=== PATIENT | female | born 1980 | race Caucasian/White ===

== ENCOUNTER 2019-07-07 13:11 | Emergency (ER) | payer OTHER ==
[~2019-07-07] VITALS: Ht 154.9 cm; Wt 94.3 kg
[2019-07-07] MEDS ORDERED: SYNTHROID50 MCG (16:21)
[2019-07-07] MEDS ORDERED: VOLTAREN-XR100 MG PO (18:26)
[2019-07-07] MEDS ORDERED: SKELAXIN800 MG PO (18:26)
== END 2019-07-07 18:50 | disposition home or self-care (01) ==
LOC: ER 13:11
DX: S33.5XXA Sprain of ligaments of lumbar spine, initial encounter (principal); S13.4XXA Sprain of ligaments of cervical spine, initial encounter; M25.512 Pain in left shoulder; R07.89 Other chest pain; V49.88XA Car occupant (driver) (passenger) injured in other specified transport accidents, initial encounter; Y93.89 Activity, other specified; Y92.413 State road as the place of occurrence of the external cause; Y99.8 Other external cause status

== ENCOUNTER 2021-05-22 08:43 | Outpatient (CLI) | payer OTHER ==
[~2021-05-22 08:43] MED LIST: SKELAXIN800 MG PO; SYNTHROID50 MCG; VOLTAREN-XR100 MG PO
== END 2021-05-22 08:53 | disposition home or self-care (01) ==
LOC: LAB 08:43
DX: D50.0 Iron deficiency anemia secondary to blood loss (chronic) (principal); E03.8 Other specified hypothyroidism; I10 Essential (primary) hypertension; E78.89 Other lipoprotein metabolism disorders; N30.00 Acute cystitis without hematuria; N80.3 Endometriosis of pelvic peritoneum; E55.9 Vitamin D deficiency, unspecified; N83.209 Unspecified ovarian cyst, unspecified side; E05.00 Thyrotoxicosis with diffuse goiter without thyrotoxic crisis or storm

== ENCOUNTER 2021-06-07 09:41 | Outpatient (CLI) | payer OTHER | END 2021-06-07 09:46 | disposition home or self-care (01) | LOC: SONOGRAMA 09:41 | DX: R10.9 Unspecified abdominal pain (principal); R10.30 Lower abdominal pain, unspecified; N23 Unspecified renal colic; R92.2 Inconclusive mammogram; N64.51 Induration of breast; Z12.31 Encounter for screening mammogram for malignant neoplasm of breast; N94.6 Dysmenorrhea, unspecified; N83.00 Follicular cyst of ovary, unspecified side; N92.0 Excessive and frequent menstruation with regular cycle ==

== ENCOUNTER 2021-06-13 07:47 | Outpatient (CLI) | payer OTHER | END 2021-06-13 07:53 | disposition home or self-care (01) | LOC: MAMO-SONO 07:47 | DX: Z12.31 Encounter for screening mammogram for malignant neoplasm of breast (principal); N64.51 Induration of breast ==

== ENCOUNTER 2021-07-16 16:05 | Emergency (ER) | payer OTHER ==
[~2021-07-16] VITALS: Ht 154.9 cm; Wt 89.8 kg
[2021-07-16] MEDS ORDERED: AYGESTIN5 MG PO (16:16)
== END 2021-07-16 20:19 | disposition home or self-care (01) ==
LOC: ER 16:05
DX: N93.8 Other specified abnormal uterine and vaginal bleeding (principal); Z88.0 Allergy status to penicillin; Z88.8 Allergy status to other drugs, medicaments and biological substances; Z91.018 Allergy to other foods

== ENCOUNTER → 2021-07-29 12:17 | Outpatient (CLI) | payer OTHER ==
[~2021-07-29 12:17] MED LIST changes: +AYGESTIN5 MG PO
== END | disposition home or self-care (01) ==
LOC: LAB 12:17
PROVIDERS: ATTEND Obstetrics & Gynecology
DX: E03.9 Hypothyroidism, unspecified (principal)

== ENCOUNTER 2021-09-18 10:39 | Outpatient (CLI) | payer OTHER | END 2021-09-18 10:46 | disposition home or self-care (01) | LOC: LAB 10:39 | DX: B09 Unspecified viral infection characterized by skin and mucous membrane lesions (principal); J45.31 Mild persistent asthma with (acute) exacerbation; R07.82 Intercostal pain; N39.0 Urinary tract infection, site not specified; R80.9 Proteinuria, unspecified; R19.5 Other fecal abnormalities; E78.00 Pure hypercholesterolemia, unspecified; M32.9 Systemic lupus erythematosus, unspecified; M10.00 Idiopathic gout, unspecified site; I11.9 Hypertensive heart disease without heart failure; R73.02 Impaired glucose tolerance (oral); E55.9 Vitamin D deficiency, unspecified; M06.9 Rheumatoid arthritis, unspecified; A52.9 Late syphilis, unspecified ==

== ENCOUNTER 2021-11-01 08:54 | Outpatient (CLI) | payer OTHER | END 2021-11-01 08:55 | disposition home or self-care (01) | LOC: LAB 08:54 | PROVIDERS: ATTEND Obstetrics & Gynecology | DX: N92.1 Excessive and frequent menstruation with irregular cycle (principal); R10.0 Acute abdomen ==

== ENCOUNTER 2021-11-26 13:56 | Outpatient (CLI) | payer OTHER | END 2021-11-26 13:57 | disposition home or self-care (01) | LOC: LAB 13:56 | PROVIDERS: ATTEND Radiology Diagnostic Radiology | DX: N85.02 Endometrial intraepithelial neoplasia [EIN] (principal) ==

== ENCOUNTER 2021-12-03 09:03 | Outpatient (CLI) | payer OTHER | END 2021-12-03 09:24 | disposition home or self-care (01) | LOC: MRI 09:03 | PROVIDERS: ATTEND Obstetrics & Gynecology | DX: N85.02 Endometrial intraepithelial neoplasia [EIN] (principal) | CPT/HCPCS: 72197 ==

== ENCOUNTER 2022-01-02 08:49 | Outpatient (CLI) | payer OTHER | END 2022-01-02 08:50 | disposition home or self-care (01) | LOC: LAB 08:49 | DX: Z01.812 Encounter for preprocedural laboratory examination (principal); D68.8 Other specified coagulation defects; Z01.810 Encounter for preprocedural cardiovascular examination ==

== ENCOUNTER 2022-10-15 09:34 | Outpatient (CLI) | payer OTHER | END 2022-10-15 09:42 | disposition home or self-care (01) | LOC: LAB 09:34 | PROVIDERS: ATTEND Dermatology | DX: R68.89 Other general symptoms and signs (principal); R82.90 Unspecified abnormal findings in urine; R79.89 Other specified abnormal findings of blood chemistry; B17.9 Acute viral hepatitis, unspecified; Z11.4 Encounter for screening for human immunodeficiency virus [HIV]; R91.8 Other nonspecific abnormal finding of lung field ==

== ENCOUNTER 2022-10-15 10:28 | Outpatient (CLI) | payer OTHER | END 2022-10-15 11:00 | disposition home or self-care (01) | LOC: MAMO-SONO 10:28 | PROVIDERS: ATTEND Obstetrics & Gynecology | DX: Z12.31 Encounter for screening mammogram for malignant neoplasm of breast (principal); N60.21 Fibroadenosis of right breast; N60.22 Fibroadenosis of left breast ==

== ENCOUNTER 2022-11-05 10:48 | Outpatient (CLI) | payer OTHER | END 2022-11-05 10:50 | disposition home or self-care (01) | LOC: LAB 10:48 | DX: R68.89 Other general symptoms and signs (principal) ==

== ENCOUNTER 2022-12-30 15:00 | Emergency (ER) | payer OTHER ==
[~2022-12-30] VITALS: Ht 154.9 cm; Wt 89.8 kg
[2022-12-30] MEDS ORDERED: DITROPAN XL5 MG (15:24)
[2022-12-30] MEDS ORDERED: SKYRIZI150 MG/1 M SQ (15:24)
[2022-12-30] MEDS ORDERED: GRALISE600 MG (15:24)
== END 2022-12-30 23:16 | disposition home or self-care (01) ==
LOC: ER 15:00
PROVIDERS: General Practice
DX: J06.9 Acute upper respiratory infection, unspecified (principal); Z20.822 Contact with and (suspected) exposure to COVID-19; Z88.0 Allergy status to penicillin; Z88.8 Allergy status to other drugs, medicaments and biological substances; Z91.018 Allergy to other foods

== ENCOUNTER → 2023-01-14 07:54 | Outpatient (CLI) | payer OTHER ==
[~2023-01-14 07:54] MED LIST changes: +DITROPAN XL5 MG; +GRALISE600 MG; +SKYRIZI150 MG/1 M SQ
== END | disposition home or self-care (01) ==
LOC: LAB 07:54
DX: I40.0 Infective myocarditis (principal); Z79.899 Other long term (current) drug therapy; Z88.0 Allergy status to penicillin; Z91.018 Allergy to other foods; Z91.041 Radiographic dye allergy status

== ENCOUNTER → 2023-01-16 | Outpatient (CLI) | payer OTHER | END | disposition home or self-care (01) | LOC: SONOGRAMA 13:10 | PROVIDERS: ATTEND Specialist | DX: R22.2 Localized swelling, mass and lump, trunk (principal) ==

== ENCOUNTER → 2023-03-11 10:47 | Outpatient (CLI) | payer OTHER ==
[2023-03-11 11:31] LABS: URINE APPEARANCE Clear; URINE BILIRRUBIN Negative (NEGATIVE); URINE BLOOD Negative; URINE COLOR Yellow; URINE GLUCOSE Negative (NEGATIVE); URINE LEUKOCYTE Negative; URINE NITRATE Negative; URINE PROTEIN Negative (NEGATIVE); URINE UROBILINOGEN 0.2 E.U./dl
[2023-03-11 11:35] LABS: URINE BACTERIA 110.8 uL (0.0-1933); URINE EPITHELIAL CELLS 10.8 uL (0.0-38.8); URINE RBC 6.4 uL (0.0-20.8); URINE WBC 2.7 uL (0.0-23.2)
[2023-03-11 11:39] LABS: HEMATOCRIT 33.1 % (36.0-45.00); HEMOGLOBIN 11.4 g/dL (12.0-15.00); MEAN CELL VOLUME 77.6 fL (80.00-100.00); MEAN CORPUSCULAR HEMOGLOBIN 26.6 pg (27.00-32.0); MEAN CORPUSCULAR HGB CONC 34.3 g/dl (32.0-36.0); PLATELET COUNT 300 K/uL (150-450); RED BLOOD COUNT 4.27 M/uL (4.00-6.00)
[2023-03-11 12:30] LABS: ALBUMIN 3.6 gm/dL (3.4-5.0); BILIRUBIN TOTAL 0.34 mg/dL (0.3-1.2); CALCIUM 8.8 mg/dL (8.5-10.1); CREATININE SERUM 0.62 mg/dL (0.55-1.02); GFR 105.06; GLOBULINA 3.6 G/DL (2.4-3.5); POTASSIUM 4.58 mEq/L (3.5-5.1); TOTAL PROTEIN 7.2 gm/dL (6.4-8.2)
== END | disposition home or self-care (01) ==
LOC: LAB 10:47
PROVIDERS: ATTEND Dermatology
DX: Z79.899 Other long term (current) drug therapy (principal); Z88.0 Allergy status to penicillin; Z91.018 Allergy to other foods

== ENCOUNTER → 2023-03-20 09:08 | Outpatient (CLI) | payer OTHER ==
[2023-03-20 10:44] LABS: CREATININE SERUM 0.65 mg/dL (0.55-1.02)
== END | disposition home or self-care (01) ==
LOC: LAB 09:08
PROVIDERS: ATTEND Urology
DX: N30.90 Cystitis, unspecified without hematuria (principal); Z88.0 Allergy status to penicillin; Z91.018 Allergy to other foods; Z91.041 Radiographic dye allergy status

== ENCOUNTER → 2023-03-24 | Outpatient (CLI) | payer OTHER | END | disposition home or self-care (01) | LOC: TOM 08:42 → MRI 08:42 | PROVIDERS: ATTEND Obstetrics & Gynecology | DX: N30.90 Cystitis, unspecified without hematuria (principal); Z88.0 Allergy status to penicillin; Z91.018 Allergy to other foods; Z91.041 Radiographic dye allergy status | CPT/HCPCS: 72196 ==

== ENCOUNTER 2023-04-11 10:03 | Emergency (ER) | payer OTHER ==
[~2023-04-11] VITALS: Ht 162.6 cm; Wt 90.7 kg
== END 2023-04-11 19:10 | disposition home or self-care (01) ==
LOC: ER 10:03
DX: M62.838 Other muscle spasm (principal); Z88.0 Allergy status to penicillin; Z88.8 Allergy status to other drugs, medicaments and biological substances; Z91.018 Allergy to other foods; E03.9 Hypothyroidism, unspecified

== ENCOUNTER → 2023-04-24 08:50 | Outpatient (CLI) | payer OTHER ==
[2023-04-24 09:25] LABS: HEMATOCRIT 35.2 % (36.0-45.00); HEMOGLOBIN 11.7 g/dL (12.0-15.00); MEAN CELL VOLUME 78.2 fL (80.00-100.00); MEAN CORPUSCULAR HGB CONC 33.2 g/dl (32.0-36.0); PLATELET COUNT 356 K/uL (150-450); RED CELL DISTRIBUTION WIDTH 16.3 % (11.5-14.5)
[2023-04-24 10:06] LABS: INR 0.95; PARTIAL THROMBOPLASTIN TIME 28.3 SECONDS (22.0-34.0)
== END | disposition home or self-care (01) ==
LOC: LAB 08:50
DX: Z01.812 Encounter for preprocedural laboratory examination (principal); D68.8 Other specified coagulation defects

== ENCOUNTER 2023-06-15 08:05 | Outpatient (CLI) | payer OTHER ==
[2023-06-15 08:29] LABS: HEMOGLOBIN 11.8 g/dL (12.0-15.00); MEAN CELL VOLUME 77.1 fL (80.00-100.00); MEAN CORPUSCULAR HEMOGLOBIN 25.2 pg (27.00-32.0); MEAN CORPUSCULAR HGB CONC 32.7 g/dl (32.0-36.0); PLATELET COUNT 324 K/uL (150-450); RED BLOOD COUNT 4.67 M/uL (4.00-6.00); RED CELL DISTRIBUTION WIDTH 15.9 % (11.5-14.5)
[2023-06-15 09:29] LABS: URINE APPEARANCE Clear; URINE BILIRRUBIN Negative (NEGATIVE); URINE BLOOD Negative; URINE COLOR Yellow; URINE GLUCOSE Negative (NEGATIVE); URINE LEUKOCYTE Negative; URINE NITRATE Negative; URINE PROTEIN Negative (NEGATIVE); URINE UROBILINOGEN 0.2 E.U./dl
[2023-06-15 09:33] LABS: ALBUMIN 3.5 gm/dL (3.4-5.0); BILIRUBIN TOTAL 0.37 mg/dL (0.3-1.2); CALCIUM 9.2 mg/dL (8.5-10.1); CREATININE SERUM 0.69 mg/dL (0.55-1.02); GFR 92.86; GLOBULINA 3.8 G/DL (2.4-3.5); POTASSIUM 4.49 mEq/L (3.5-5.1); TOTAL PROTEIN 7.3 gm/dL (6.4-8.2)
[2023-06-15 09:34] LABS: URINE BACTERIA 319.9 uL (0.0-1933); URINE EPITHELIAL CELLS 17.3 uL (0.0-38.8); URINE RBC 8.4 uL (0.0-20.8); URINE WBC 2.9 uL (0.0-23.2)
== END 2023-06-15 08:06 | disposition home or self-care (01) ==
LOC: LAB 08:05
DX: Z79.899 Other long term (current) drug therapy (principal); I40.0 Infective myocarditis

== ENCOUNTER 2023-11-19 11:43 | Emergency (ER) | payer OTHER ==
[~2023-11-19] VITALS: Ht 170.2 cm; Wt 95.3 kg
[~2023-11-19 11:43] MED LIST changes: +TIROSINT75 MCG PO
[2023-11-19] MEDS ORDERED: CODEINE PHOSPHATE/GUAIFENESIN 5 ML ML PO STA (12:29)
[2023-11-19] MEDS ORDERED: ACETAMINOPHEN 500 MG GEL..CAP PO STA (12:29)
[2023-11-19] MEDS ORDERED: DEXAMETHASONE SODIUM PHOSPHATE 4 MG/ML VIAL IM STA (12:29)
[2023-11-19] MEDS ORDERED: CETIRIZINE HCL 5 MG/5 ML ML PO STA (12:29)
[2023-11-19] MEDS ORDERED: DEXAMETHASONE SODIUM PHOSPHATE 4 MG/ML VIAL ONE ×2 (12:55→13:36)
[2023-11-19] MEDS ORDERED: ACETAMINOPHEN 500 MG GEL..CAP PO ONE ×2 (12:55→13:35)
[2023-11-19] MEDS ORDERED: CETIRIZINE HCL 5MG/5ML BLIST.PACK PO ONE ×2 (12:56→13:36)
[2023-11-19 13:55] LABS: HEMATOCRIT 35.6 % (36.0-45.00); HEMOGLOBIN 11.9 g/dL (12.0-15.00); MEAN CELL VOLUME 78.6 fL (80.00-100.00); MEAN CORPUSCULAR HEMOGLOBIN 26.4 pg (27.00-32.0); MEAN CORPUSCULAR HGB CONC 33.5 g/dl (32.0-36.0); PLATELET COUNT 296 K/uL (150-450); RED BLOOD COUNT 4.53 M/uL (4.00-6.00); RED CELL DISTRIBUTION WIDTH 16.6 % (11.5-14.5)
[2023-11-19 14:15] LABS: CALCIUM 9.2 mg/dL (8.5-10.1); CREATININE SERUM 0.62 mg/dL (0.55-1.02); GFR 105.06; POTASSIUM 3.91 mEq/L (3.5-5.1)
[2023-11-19] MEDS ORDERED: ACETAMINOPHEN500 M1 PO (14:32)
[2023-11-19] MEDS ORDERED: MEDROLPACK PO (14:32)
[2023-11-19] MEDS ORDERED: MUCINEX DM ER1 EAC1 PO (14:32)
[2023-11-19] MEDS ORDERED: ZYRTEC10 M3 PO (14:32)
[2023-11-19] MEDS ORDERED: AZITHROMYCIN500 MG PO (14:32)
== END 2023-11-19 14:55 | disposition home or self-care (01) ==
LOC: ER 11:44
PROVIDERS: General Practice
DX: R53.81 Other malaise (principal); J06.9 Acute upper respiratory infection, unspecified; Z20.822 Contact with and (suspected) exposure to COVID-19; E03.8 Other specified hypothyroidism; Z91.018 Allergy to other foods; Z91.040 Latex allergy status; Z91.041 Radiographic dye allergy status

== ENCOUNTER 2023-12-14 09:01 | Outpatient (CLI) | payer OTHER ==
[~2023-12-14 09:01] MED LIST changes: +ACETAMINOPHEN500 M1 PO; +AZITHROMYCIN500 MG PO; +MEDROLPACK PO; +MUCINEX DM ER1 EAC1 PO; +ZYRTEC10 M3 PO
[2023-12-14 09:44] LABS: HEMATOCRIT 34.7 % (36.0-45.00); HEMOGLOBIN 11.8 g/dL (12.0-15.00); MEAN CELL VOLUME 79.2 fL (80.00-100.00); MEAN CORPUSCULAR HGB CONC 34.1 g/dl (32.0-36.0); PLATELET COUNT 315 K/uL (150-450); RED BLOOD COUNT 4.38 M/uL (4.00-6.00); RED CELL DISTRIBUTION WIDTH 15.6 % (11.5-14.5)
[2023-12-14 09:57] LABS: ERYTHROCYTE SEDIMENTATION RATE 36 mm/hr
[2023-12-14 10:17] LABS: PH,URINE 5.5 (5.0-8.0); URINE APPEARANCE Clear; URINE BILIRRUBIN Negative (NEGATIVE); URINE BLOOD Trace; URINE COLOR Yellow; URINE GLUCOSE Negative (NEGATIVE); URINE KETONE Negative (NEGATIVE); URINE LEUKOCYTE Negative; URINE NITRATE Negative; URINE PROTEIN Negative (NEGATIVE); URINE UROBILINOGEN 0.2 E.U./dl
[2023-12-14 10:27] LABS: URINE BACTERIA 777.3 uL (0.0-1933); URINE EPITHELIAL CELLS 61.8 uL (0.0-38.8); URINE RBC 16.3 uL (0.0-20.8); URINE WBC 4.4 uL (0.0-23.2)
[2023-12-14 10:51] LABS: ALBUMIN 3.4 gm/dL (3.4-5.0); BILIRUBIN TOTAL 0.39 mg/dL (0.3-1.2); CHOL HDL RATIO 6.3 (0-5.0); CREATININE SERUM 0.64 mg/dL (0.55-1.02); GFR 101.28; GLOBULINA 3.4 G/DL (2.4-3.5); POTASSIUM 4.21 mEq/L (3.5-5.1); TOTAL PROTEIN 6.8 gm/dL (6.4-8.2); TSH 1.2 uIU/mL (0.358-3.74)
[2023-12-14 10:54] LABS: C-REACTIVE PROTEIN 1.61 MG/DL (0.00-0.29)
[2023-12-15 05:05] LABS: hav igm Negative (Negative); hcv Non Reactive (Non Reactive); hep b c Negative (Negative)
[2023-12-15 09:07] LABS: HEPATITIS B CORE IGG Negative (Negative); HEPATITIS B CORE IGM Negative (Negative)
== END 2023-12-14 09:02 | disposition home or self-care (01) ==
LOC: LAB 09:01
DX: L40.59 Other psoriatic arthropathy (principal); R82.90 Unspecified abnormal findings in urine; R68.89 Other general symptoms and signs; M45.6 Ankylosing spondylitis lumbar region; E78.2 Mixed hyperlipidemia; E03.2 Hypothyroidism due to medicaments and other exogenous substances; I10 Essential (primary) hypertension

== ENCOUNTER 2023-12-14 09:40 | Outpatient (CLI) | payer OTHER | END 2023-12-14 09:50 | disposition home or self-care (01) | LOC: RAD 09:40 | PROVIDERS: ATTEND Internal Medicine Rheumatology | DX: L40.59 Other psoriatic arthropathy (principal); M45.6 Ankylosing spondylitis lumbar region; E78.2 Mixed hyperlipidemia; E03.2 Hypothyroidism due to medicaments and other exogenous substances; I11.0 Hypertensive heart disease with heart failure; M46.1 Sacroiliitis, not elsewhere classified ==

== ENCOUNTER 2024-03-21 08:28 | Outpatient (CLI) | payer OTHER ==
[2024-03-21 09:34] LABS: PH,URINE 5.5 (5.0-8.0); URINE APPEARANCE Clear; URINE BILIRRUBIN Negative (NEGATIVE); URINE BLOOD Trace; URINE COLOR Yellow; URINE GLUCOSE Negative (NEGATIVE); URINE KETONE Trace (NEGATIVE); URINE LEUKOCYTE Negative; URINE NITRATE Negative; URINE PROTEIN Negative (NEGATIVE)
[2024-03-21 09:35] LABS: HEMOGLOBIN 11.8 g/dL (12.0-15.00); MEAN CELL VOLUME 80.7 fL (80.00-100.00); MEAN CORPUSCULAR HEMOGLOBIN 27.3 pg (27.00-32.0); MEAN CORPUSCULAR HGB CONC 33.8 g/dl (32.0-36.0); PLATELET COUNT 336 K/uL (150-450); RED BLOOD COUNT 4.34 M/uL (4.00-6.00); RED CELL DISTRIBUTION WIDTH 16.4 % (11.5-14.5)
[2024-03-21 09:40] LABS: URINE BACTERIA 1132.5 uL (0.0-1933); URINE EPITHELIAL CELLS 16.9 uL (0.0-38.8); URINE RBC 36.3 uL (0.0-20.8); URINE WBC 2.1 uL (0.0-23.2)
[2024-03-21 09:54] LABS: URINE CAST 0.15 uL (0.0-1.40)
[2024-03-21 10:40] LABS: ALBUMIN 3.7 gm/dL (3.4-5.0); BILIRUBIN TOTAL 0.31 mg/dL (0.3-1.2); CALCIUM 9.1 mg/dL (8.5-10.1); CHOL HDL RATIO 5.6 (0-5.0); CREATININE SERUM 0.68 mg/dL (0.55-1.02); GFR 93.99; GLOBULINA 3.6 G/DL (2.4-3.5); POTASSIUM 4.32 mEq/L (3.5-5.1); TOTAL PROTEIN 7.3 gm/dL (6.4-8.2); TSH 2.1 uIU/mL (0.358-3.74)
== END 2024-03-21 08:34 | disposition home or self-care (01) ==
LOC: LAB 08:28
DX: L40.0 Psoriasis vulgaris (principal); Z79.899 Other long term (current) drug therapy; E03.8 Other specified hypothyroidism; R73.03 Prediabetes

== ENCOUNTER 2024-03-21 10:06 | Outpatient (CLI) | payer OTHER | END 2024-03-21 10:09 | disposition home or self-care (01) | LOC: SONOGRAMA 10:06 | DX: E03.8 Other specified hypothyroidism (principal) ==

== ENCOUNTER → 2024-06-06 10:36 | Outpatient (CLI) | payer OTHER ==
[2024-06-06 11:22] LABS: HEMATOCRIT 35.1 % (36.0-45.00); HEMOGLOBIN 11.8 g/dL (12.0-15.00); MEAN CELL VOLUME 82.6 fL (80.00-100.00); MEAN CORPUSCULAR HEMOGLOBIN 27.8 pg (27.00-32.0); MEAN CORPUSCULAR HGB CONC 33.6 g/dl (32.0-36.0); PLATELET COUNT 293 K/uL (150-450); RED BLOOD COUNT 4.25 M/uL (4.00-6.00); RED CELL DISTRIBUTION WIDTH 16.2 % (11.5-14.5)
[2024-06-06 11:25] LABS: ERYTHROCYTE SEDIMENTATION RATE 28 mm/hr
[2024-06-06 11:32] LABS: URINE BILIRRUBIN SMALL (NEGATIVE); URINE BLOOD TRACE; URINE GLUCOSE NEGATIVE (NEGATIVE); URINE KETONE NEGATIVE (NEGATIVE); URINE LEUKOCYTE NEGATIVE; URINE NITRATE NEGATIVE; URINE PROTEIN NEGATIVE (NEGATIVE); URINE UROBILINOGEN 0.2 E.U./dl
[2024-06-06 11:33] LABS: URINE BACTERIA 4655.8 uL (0.0-1933); URINE CAST 0.29 uL (0.0-1.40); URINE EPITHELIAL CELLS 67.9 uL (0.0-38.8); URINE RBC 11.6 uL (0.0-20.8); URINE WBC 13.1 uL (0.0-23.2)
[2024-06-06 11:34] LABS: URINE APPEARANCE CLEAR; URINE COLOR YELLOW
[2024-06-06 12:55] LABS: ALBUMIN 3.4 gm/dL (3.4-5.0); BILIRUBIN TOTAL 0.41 mg/dL (0.3-1.2); CHOL HDL RATIO 5.5 (0-5.0); CREATININE SERUM 0.58 mg/dL (0.55-1.02); GFR 112.93; GLOBULINA 3.5 G/DL (2.4-3.5); POTASSIUM 4.42 mEq/L (3.5-5.1); TOTAL PROTEIN 6.9 gm/dL (6.4-8.2); TSH 1.35 uIU/mL (0.358-3.74)
[2024-06-06 12:58] LABS: C-REACTIVE PROTEIN 2.33 MG/DL (0.00-0.29)
== END | disposition home or self-care (01) ==
LOC: LAB 10:36
PROVIDERS: ATTEND Internal Medicine Rheumatology
DX: L40.51 Distal interphalangeal psoriatic arthropathy (principal); I10 Essential (primary) hypertension; E78.2 Mixed hyperlipidemia; E03.2 Hypothyroidism due to medicaments and other exogenous substances

== ENCOUNTER 2024-06-23 12:58 | Outpatient (CLI) | payer OTHER ==
[2024-06-24] MEDS ORDERED: CELEXA10 MG PO (12:41)
[2024-06-24] MEDS ORDERED: LEVOTHYROXINE25 MCG PO (12:41)
== END 2024-06-23 13:13 | disposition home or self-care (01) ==
LOC: MRI 12:58
PROVIDERS: ATTEND Internal Medicine Rheumatology
DX: M54.12 Radiculopathy, cervical region (principal)
CPT/HCPCS: 72141

== ENCOUNTER 2024-06-24 12:16 | Emergency (ER) | payer OTHER ==
[~2024-06-24] VITALS: Ht 154.9 cm; Wt 90.7 kg
[2024-06-24] MEDS ORDERED: CELEXA10 MG PO (12:41)
[2024-06-24] MEDS ORDERED: LEVOTHYROXINE25 MCG PO (12:41)
[2024-06-24] MEDS ORDERED: ACETAMINOPHEN 500 MG GEL..CAP PO ONE ×2 (15:45→15:51)
[2024-06-24] MEDS ORDERED: ONDANSETRON 4 MG TAB.RAPDIS PO ONE ×2 (15:45→15:51)
[2024-06-24] MEDS ORDERED: FAMOtidine 10 MG/ML (4ML VIAL) IV ONE (15:45)
[2024-06-24] MEDS ORDERED: IPRATROPIUM/ALBUTEROL SULFATE 3 ML AMPUL.NEB IH ONE ×2 (15:45→16:43)
[2024-06-24] MEDS ORDERED: BENZONATATE 100 MG CAPSULE PO ONE (15:45)
[2024-06-24] MEDS ORDERED: FAMOTIDINE/PF 20 MG/2 ML VIAL ONE (15:51)
[2024-06-24 16:34] LABS: HEMATOCRIT 37.8 % (36.0-45.00); HEMOGLOBIN 12.7 g/dL (12.0-15.00); MEAN CELL VOLUME 82.3 fL (80.00-100.00); MEAN CORPUSCULAR HEMOGLOBIN 27.6 pg (27.00-32.0); MEAN CORPUSCULAR HGB CONC 33.5 g/dl (32.0-36.0); PLATELET COUNT 353 K/uL (150-450); RED BLOOD COUNT 4.59 M/uL (4.00-6.00); RED CELL DISTRIBUTION WIDTH 16.1 % (11.5-14.5)
[2024-06-24 17:07] LABS: CALCIUM 9.5 mg/dL (8.5-10.1); CREATININE SERUM 0.63 mg/dL (0.55-1.02); GFR 102.66; POTASSIUM 4.23 mEq/L (3.5-5.1)
[2024-06-24] MEDS ORDERED: KETOROLAC TROMETHAMINE 30 MG VIAL IM STA (17:23)
[2024-06-24] MEDS ORDERED: KETOROLAC TROMETHAMINE 30 MG VIAL ONE (18:02)
== END 2024-06-24 18:14 | disposition home or self-care (01) ==
LOC: ER 12:19
PROVIDERS: General Practice
DX: R53.81 Other malaise (principal); R51.9 Headache, unspecified; J00 Acute nasopharyngitis [common cold]; Z20.822 Contact with and (suspected) exposure to COVID-19; E03.8 Other specified hypothyroidism; Z91.018 Allergy to other foods; Z91.040 Latex allergy status; Z91.041 Radiographic dye allergy status

== ENCOUNTER 2024-07-28 09:52 | Outpatient (CLI) | payer OTHER ==
[~2024-07-28 09:52] MED LIST changes: +CELEXA10 MG PO; +LEVOTHYROXINE25 MCG PO
[2024-07-28 10:40] LABS: HEMATOCRIT 36.9 % (36.0-45.00); HEMOGLOBIN 12.2 g/dL (12.0-15.00); PLATELET COUNT 356 K/uL (150-450); RED CELL DISTRIBUTION WIDTH 16.1 % (11.5-14.5)
[2024-07-28 10:58] LABS: PH,URINE 6.5 (5.0-8.0); URINE APPEARANCE Clear; URINE BILIRRUBIN Negative (NEGATIVE); URINE BLOOD Negative; URINE COLOR Yellow; URINE EPITHELIAL CELLS 63.9 uL (0.0-38.8); URINE GLUCOSE Negative (NEGATIVE); URINE KETONE Negative (NEGATIVE); URINE LEUKOCYTE Negative; URINE NITRATE Negative; URINE PROTEIN Negative (NEGATIVE); URINE RBC 18.8 uL (0.0-20.8); URINE WBC 4.4 uL (0.0-23.2)
[2024-07-28 12:12] LABS: ALBUMIN 3.9 gm/dL (3.4-5.0); BILIRUBIN TOTAL 0.46 mg/dL (0.3-1.2); CALCIUM 9.2 mg/dL (8.5-10.1); CREATININE SERUM 0.58 mg/dL (0.55-1.02); GFR 112.93; GLOBULINA 3.4 G/DL (2.4-3.5); POTASSIUM 4.5 mEq/L (3.5-5.1); TOTAL PROTEIN 7.3 gm/dL (6.4-8.2)
== END 2024-07-28 09:53 | disposition home or self-care (01) ==
LOC: LAB 09:52
DX: Z79.899 Other long term (current) drug therapy (principal)

== ENCOUNTER 2024-09-30 12:06 | Outpatient (CLI) | payer OTHER | END 2024-09-30 12:12 | disposition home or self-care (01) | LOC: RAD 12:06 | DX: R91.8 Other nonspecific abnormal finding of lung field (principal) ==

== ENCOUNTER 2024-11-03 11:13 | Outpatient (CLI) | payer OTHER ==
[2024-11-03 12:20] LABS: BASO % 0.4 % (0.1-1.2); EOS # 0.16 (0.04-0.54); EOS % 1.6 % (0.7-7.0); LYMPH # 1.95 (1.18-3.74); LYMPH % 20.1 % (19.3-53.1); MEAN PLATELET VOLUME 9.90 fl (9.4-12.4); MONO # 0.52 (0.24-0.82); MONO % 5.3 % (4.7-12.5); NEUT # 7.02 (1.56-6.13); NEUT % 72.3 % (34.0-71.1); RED CELL DISTRIBUTION WIDTH 14.9 % (11.6-14.4)
[2024-11-03 12:25] LABS: URINE APPEARANCE Clear; URINE BACTERIA 145.1 uL (0.0-1933); URINE BILIRRUBIN Negative (NEGATIVE); URINE BLOOD Negative; URINE COLOR Yellow; URINE EPITHELIAL CELLS 6.8 uL (0.0-38.8); URINE GLUCOSE Negative (NEGATIVE); URINE KETONE Negative (NEGATIVE); URINE LEUKOCYTE Negative; URINE NITRATE Negative; URINE PROTEIN Negative (NEGATIVE); URINE RBC 6.5 uL (0.0-20.8); URINE UROBILINOGEN 0.2 E.U./dl; URINE WBC 2.7 uL (0.0-23.2)
[2024-11-03 12:27] LABS: URINE CAST 0.14 uL (0.0-1.40)
[2024-11-03 13:44] LABS: ALT/SGPT 18.0 U/L (12-78); AST/SGOT 10.0 U/L (15-37); BILIRUBIN TOTAL 0.33 mg/dL (0.3-1.2); BUN CREA RATIO 21.0 (7.0-25.0); CHOL HDL RATIO 5.4 (0-5.0); CREATININE SERUM 0.58 mg/dL (0.55-1.02); GFR 112.93; GLOBULINA 3.6 G/DL (2.4-3.5); GLUCOSE FASTING 89.0 mg/dL (65-100); HDL 42.0 mg/dl (40-60); LDL 151.0 mg/dl (0-130); OSMOLALITY SERUM 280.0 MOSM/KG (275-295); TSH 0.741 uIU/mL (0.358-3.74); VLDL 32.0 (0-39)
[2024-11-03 13:48] LABS: FOLIC ACID 13.53 ng/ml (4.78-20); VITAMIN D3 25 HYDROXY 31.86 ng/ml (30-120)
== END 2024-11-03 11:22 | disposition home or self-care (01) ==
LOC: LAB 11:13
DX: I10 Essential (primary) hypertension (principal); E03.9 Hypothyroidism, unspecified; R73.03 Prediabetes; Z12.11 Encounter for screening for malignant neoplasm of colon; E55.9 Vitamin D deficiency, unspecified; N39.0 Urinary tract infection, site not specified; D64.9 Anemia, unspecified

== ENCOUNTER 2024-11-09 14:50 | Outpatient (CLI) | payer OTHER ==
[2024-11-09 15:42] LABS: ob POSITIVE (NEGATIVE)
== END 2024-11-09 14:54 | disposition home or self-care (01) ==
LOC: LAB 14:50
PROVIDERS: ATTEND General Practice
DX: E03.9 Hypothyroidism, unspecified (principal); R73.03 Prediabetes; Z12.11 Encounter for screening for malignant neoplasm of colon; E55.9 Vitamin D deficiency, unspecified; N39.0 Urinary tract infection, site not specified; D64.9 Anemia, unspecified

== ENCOUNTER 2024-11-18 13:17 | Outpatient (CLI) | payer OTHER | END 2024-11-18 13:24 | disposition home or self-care (01) | LOC: SONOGRAMA 13:17 | PROVIDERS: ATTEND Physical Medicine & Rehabilitation | DX: M75.31 Calcific tendinitis of right shoulder (principal); M75.81 Other shoulder lesions, right shoulder ==

== ENCOUNTER → 2024-12-04 | Emergency (ER) | payer OTHER ==
[~2024-12-04] VITALS: Ht 154.9 cm; Wt 90.3 kg
[~2024-12-04] MED LIST changes: +GABAPENTIN 600 MG TABLET PO STA; +IBUPROFEN800 MG PO; +KETOROLAC TROMETHAMINE 60 MG VIAL IM STA; +METOTREXATO; +ORPHENADRINE CITRATE 30 MG/ML AMPUL IM STA; +ZANAFLEX4 M1
== END | disposition home or self-care (01) ==
LOC: ER 11:21
DX: M75.32 Calcific tendinitis of left shoulder (principal); Z85.89 Personal history of malignant neoplasm of other organs and systems; Z91.041 Radiographic dye allergy status; Z91.040 Latex allergy status; Z91.018 Allergy to other foods

== ENCOUNTER 2024-12-14 08:32 | Outpatient (CLI) | payer OTHER ==
[~2024-12-14 08:32] MED LIST changes: -GABAPENTIN 600 MG TABLET PO STA; -KETOROLAC TROMETHAMINE 60 MG VIAL IM STA; -ORPHENADRINE CITRATE 30 MG/ML AMPUL IM STA
== END 2024-12-14 08:33 | disposition home or self-care (01) ==
LOC: RAD 08:32
DX: M75.31 Calcific tendinitis of right shoulder (principal)

== ENCOUNTER → 2024-12-23 10:51 | Outpatient (CLI) | payer OTHER ==
[2024-12-23 11:12] LABS: BASO % 0.5 % (0.1-1.2); EOS # 0.18 (0.04-0.54); EOS % 1.6 % (0.7-7.0); LYMPH # 2.38 (1.18-3.74); LYMPH % 20.9 % (19.3-53.1); MEAN PLATELET VOLUME 9.20 fl (9.4-12.4); MONO # 0.77 (0.24-0.82); MONO % 6.7 % (4.7-12.5); NEUT # 7.97 (1.56-6.13); NEUT % 69.9 % (34.0-71.1); RED CELL DISTRIBUTION WIDTH 14.9 % (11.6-14.4)
[2024-12-23 11:16] LABS: ERYTHROCYTE SEDIMENTATION RATE 47 mm/hr (0-20)
[2024-12-23 11:23] LABS: URINE APPEARANCE Clear; URINE BILIRRUBIN Negative (NEGATIVE); URINE BLOOD Negative; URINE COLOR Yellow; URINE GLUCOSE Negative (NEGATIVE); URINE KETONE Trace (NEGATIVE); URINE LEUKOCYTE Negative; URINE NITRATE Negative; URINE PROTEIN Negative (NEGATIVE); URINE UROBILINOGEN 0.2 E.U./dl
[2024-12-23 11:27] LABS: URINE BACTERIA 680.3 uL (0.0-1933); URINE EPITHELIAL CELLS 14.6 uL (0.0-38.8); URINE RBC 10.8 uL (0.0-20.8); URINE WBC 4.7 uL (0.0-23.2)
[2024-12-23 11:48] LABS: URINE CAST 0.43 uL (0.0-1.40)
[2024-12-23 12:00] LABS: ALT/SGPT 19.0 U/L (12-78); AST/SGOT 11.0 U/L (15-37); BILIRUBIN TOTAL 0.51 mg/dL (0.3-1.2); BUN CREA RATIO 15.0 (7.0-25.0); CREATININE SERUM 0.73 mg/dL (0.55-1.02); GFR 86.61; GLOBULINA 4.1 G/DL (2.4-3.5); GLUCOSE FASTING 94.0 mg/dL (65-100); OSMOLALITY SERUM 279.0 MOSM/KG (275-295)
== END | disposition home or self-care (01) ==
LOC: LAB 10:51
PROVIDERS: ATTEND Internal Medicine Rheumatology
DX: R82.90 Unspecified abnormal findings in urine (principal); R79.89 Other specified abnormal findings of blood chemistry; R68.89 Other general symptoms and signs

== ENCOUNTER 2025-02-01 14:33 | Emergency (ER) | payer OTHER ==
[~2025-02-01] VITALS: Ht 154.9 cm; Wt 90.7 kg
[2025-02-01] MEDS ORDERED: CITALOPRAM HBR10 MG PO (15:14)
[2025-02-01] MEDS ORDERED: GUAIFENESIN 100 MG/5 ML BLIST.PACK PO STA (15:40)
[2025-02-01] MEDS ORDERED: METHYLPREDNISOLONE SOD SUCC 125 MG VIAL IM STA (15:40)
[2025-02-01] MEDS ORDERED: AZITHROMYCIN 500 MG TABLET PO STA (15:40)
[2025-02-01] MEDS ORDERED: METHYLPREDNISOLONE SOD SUCC 125 MG VIAL ONE (15:55)
[2025-02-01] MEDS ORDERED: AZITHROMYCIN 500 MG TABLET PO ONE (15:55)
[2025-02-01] MEDS ORDERED: GUAIFENESIN 200 MG/10 ML BLIST.PACK PO ONE (15:56)
[2025-02-01 16:01] LABS: BASO % 0.5 % (0.1-1.2); EOS # 0.16 (0.04-0.54); EOS % 2.0 % (0.7-7.0); LYMPH # 1.26 (1.18-3.74); LYMPH % 15.9 % (19.3-53.1); MEAN PLATELET VOLUME 9.40 fl (9.4-12.4); MONO # 0.90 (0.24-0.82); MONO % 11.4 % (4.7-12.5); NEUT # 5.53 (1.56-6.13); NEUT % 69.9 % (34.0-71.1); RED CELL DISTRIBUTION WIDTH 14.9 % (11.6-14.4)
[2025-02-01 16:32] LABS: COVID-19 AG NEGATIVE (NEGATIVE)
[2025-02-01 16:55] VITALS: BP 115/76; O2SAT 98
== END 2025-02-01 16:57 | disposition home or self-care (01) ==
LOC: ER 14:33
PROVIDERS: General Practice
DX: J06.9 Acute upper respiratory infection, unspecified (principal); Z20.822 Contact with and (suspected) exposure to COVID-19; Z91.040 Latex allergy status; Z88.8 Allergy status to other drugs, medicaments and biological substances; Z91.018 Allergy to other foods

== ENCOUNTER 2025-02-04 23:42 | Emergency (ER) | payer OTHER ==
[~2025-02-04] VITALS: Ht 162.6 cm; Wt 90.7 kg
[~2025-02-04 23:42] MED LIST changes: +CITALOPRAM HBR10 MG PO
[2025-02-05] MEDS ORDERED: IPRATROPIUM/ALBUTEROL SULFATE 3 ML AMPUL.NEB IH ONE ×3 (00:21→04:50)
[2025-02-05] MEDS ORDERED: MAGNESIUM SULFATE 50% 1,000 MG/2 ML VIAL ONE (00:30)
[2025-02-05] MEDS ORDERED: IPRATROPIUM/ALBUTEROL SULFATE 3 ML AMPUL.NEB IH SCH ×2 (00:30→05:00)
[2025-02-05] MEDS ORDERED: MAGNESIUM SULFATE IN WATER 50 ML IV ONE (00:30)
[2025-02-05] MEDS ORDERED: METHYLPREDNISOLONE SOD SUCC 125 MG VIAL IV ONE (00:30)
[2025-02-05] MEDS ORDERED: METHYLPREDNISOLONE SOD SUCC 125 MG VIAL ONE (00:30)
[2025-02-05 02:37] LABS: BASO % 0.2 % (0.1-1.2); EOS # 0.08 (0.04-0.54); EOS % 0.6 % (0.7-7.0); LYMPH # 1.26 (1.18-3.74); LYMPH % 10.1 % (19.3-53.1); MEAN PLATELET VOLUME 9.30 fl (9.4-12.4); MONO # 0.44 (0.24-0.82); MONO % 3.5 % (4.7-12.5); NEUT # 10.56 (1.56-6.13); NEUT % 85.2 % (34.0-71.1); RED CELL DISTRIBUTION WIDTH 15.2 % (11.6-14.4)
[2025-02-05 03:10] LABS: COVID-19 AG NEGATIVE (NEGATIVE)
[2025-02-05] MEDS ORDERED: AZITHROMYCIN500 MG PO (06:23)
[2025-02-05] MEDS ORDERED: XOPENEX CO1.25 MG/0. IH (06:23)
[2025-02-05] MEDS ORDERED: BENZONATATE200 M1 PO (06:23)
[2025-02-05] MEDS ORDERED: BUDESONIDE0.5 MG/2 M IH (06:23)
== END 2025-02-05 06:37 | disposition home or self-care (01) ==
LOC: ER 23:42
PROVIDERS: Preventive Medicine Public Health & General Preventive Medicine
DX: J45.901 Unspecified asthma with (acute) exacerbation (principal); R05.9 Cough, unspecified; R06.02 Shortness of breath; Z20.822 Contact with and (suspected) exposure to COVID-19; Z91.018 Allergy to other foods; Z91.040 Latex allergy status; Z91.041 Radiographic dye allergy status

== ENCOUNTER 2025-02-08 15:18 | Inpatient (IN) | payer OTHER ==
[~2025-02-08] VITALS: Ht 154.9 cm; Wt 90.7 kg
[~2025-02-08 15:18] MED LIST changes: +BENZONATATE200 M1 PO; +BUDESONIDE0.5 MG/2 M IH; +XOPENEX CO1.25 MG/0. IH
--- NOTE | 2025-02-08 15:41 | NUR ---
SE RECIBE PTE ALERTA Y OPRIENTADO X3 VERBALIAZA QUE TIENE ASMA DESDE HACE RILEY SEMANA SE ESTA DANDO TRATAMIENTO Y NO MEJORA.
[2025-02-08] MEDS ORDERED: GUAIFENESIN/DEXTROMETHORPHAN 100MG/10ML BLIST.PACK PO ONE (16:00)
[2025-02-08] MEDS ORDERED: METHYLPREDNISOLONE SOD SUCC 125 MG VIAL IV ONE (16:00)
[2025-02-08] MEDS ORDERED: IPRATROPIUM/ALBUTEROL SULFATE 3 ML AMPUL.NEB IH SCH ×2 (16:00→22:07)
[2025-02-08] MEDS ORDERED: 0.9 % SODIUM CHLORIDE 500 ML IV ONE (16:15)
[2025-02-08] MEDS ORDERED: GUAIFEN/DEXTROMETHORPHAN/PE 10 ML BLIST.PACK PO ONE (16:25)
[2025-02-08] MEDS ORDERED: METHYLPREDNISOLONE SOD SUCC 125 MG VIAL ONE (16:25)
--- NOTE | 2025-02-08 16:48 | NUR ---
MR GRAJEDA ORIENTA PTE SOBRE TX MEDICO EL CUAL REFIERE ENTENDER.SE LE CANALIZA BAJO MEDIDAS ASEPTICAS,SE ADMINISTRAN MEDICAMENTOS ASHLEY ORDEN MEDICA.
[2025-02-08] MEDS ORDERED: IPRATROPIUM/ALBUTEROL SULFATE 3 ML AMPUL.NEB IH ONE (16:56)
[2025-02-08 17:21] LABS: BASO % 0.3 % (0.1-1.2); EOS # 0.32 (0.04-0.54); EOS % 2.4 % (0.7-7.0); LYMPH # 1.78 (1.18-3.74); LYMPH % 13.1 % (19.3-53.1); MEAN PLATELET VOLUME 9.20 fl (9.4-12.4); MONO # 0.87 (0.24-0.82); MONO % 6.4 % (4.7-12.5); NEUT # 10.47 (1.56-6.13); NEUT % 77.3 % (34.0-71.1); RED CELL DISTRIBUTION WIDTH 15.1 % (11.6-14.4)
[2025-02-08 17:48] LABS: ALT/SGPT 23.0 U/L (12-78); AST/SGOT 13.0 U/L (15-37); BILIRUBIN TOTAL 0.43 mg/dL (0.3-1.2); BUN CREA RATIO 17.0 (7.0-25.0); CREATININE SERUM 0.76 mg/dL (0.55-1.02); GFR 82.3; GLOBULINA 4.1 G/DL (2.4-3.5); GLUCOSE FASTING 99.0 mg/dL (65-100); OSMOLALITY SERUM 280.0 MOSM/KG (275-295)
[2025-02-08 18:23] LABS: COVID-19 AG NEGATIVE (NEGATIVE)
[2025-02-08] MEDS ORDERED: MAGNESIUM SULFATE 50% 1,000 MG/2 ML VIAL ONE (19:13)
[2025-02-08] MEDS ORDERED: MAGNESIUM SULFATE IN WATER 50 ML IV ONE ×2 (19:30→22:15)
[2025-02-08 22:02] LABS: ABG PH 7.388 (7.35-7.45); ABG PO2 90.0 mmHg (80-100); BICARBONATE 24.0 mmol/l (23-25)
[2025-02-08 22:03] LABS: o2 21 %
[2025-02-08] MEDS ORDERED: METHYLPREDNISOLONE SOD SUCC 40 MG VIAL IV SCH (22:07)
[2025-02-08] MEDS ORDERED: FAMOTIDINE/PF 20 MG in 0.9 % SODIUM CHLORIDE 8 ML IV PUSH SCH (22:07)
[2025-02-08] MEDS ORDERED: BUDESONIDE 0.5 MG/2 ML AMPUL.NEB IH SCH (22:10)
[2025-02-08] MEDS ORDERED: AZITHROMYCIN 500 MG VIAL IV SCH (22:11)
[2025-02-08] MEDS ORDERED: ACETAMINOPHEN 325 MG TABLET PO PRN (22:15)
[2025-02-08] MEDS ORDERED: 0.9 % SODIUM CHLORIDE 1,000 ML IV SCH (22:15)
[2025-02-08] MEDS ORDERED: BENZONATATE 100 MG CAPSULE PO PRN (22:15)
[2025-02-09] VITALS (9 sets, daily range): BP systolic 122–142; BP diastolic 78–91; O2SAT 88–98
[2025-02-09 02:13] LABS: URINE APPEARANCE Clear; URINE BILIRRUBIN Negative (NEGATIVE); URINE BLOOD Small; URINE COLOR Yellow; URINE KETONE Trace (NEGATIVE); URINE LEUKOCYTE Negative; URINE NITRATE Negative; URINE PROTEIN Negative (NEGATIVE); URINE UROBILINOGEN 0.2 E.U./dl
[2025-02-09 02:20] LABS: URINE BACTERIA 11.9 uL (0.0-1933); URINE RBC 13.6 uL (0.0-20.8)
[2025-02-09 02:21] LABS: URINE CAST 0.00 uL (0.0-1.40); URINE EPITHELIAL CELLS 0.9 uL (0.0-38.8); URINE GLUCOSE >=1000 MG/DL (NEGATIVE); URINE WBC 0.7 uL (0.0-23.2)
[2025-02-09] MEDS ORDERED: LEVOTHYROXINE SODIUM 75 MCG TABLET PO SCH (06:00)
[2025-02-09] MEDS ORDERED: ACETAMINOPHEN 500 MG GEL..CAP PO PRN (08:00)
[2025-02-09] MEDS ORDERED: METHYLPREDNISOLONE SOD SUCC 125 MG/VIAL IV SCH ×2 (08:00→21:00)
[2025-02-09] MEDS ORDERED: AZITHROMYCIN 500 MG VIAL IV ONE (08:07)
[2025-02-09] MEDS ORDERED: LORATADINE 10 MG TABLET PO SCH (20:17)
[2025-02-09] MEDS ORDERED: MONTELUKAST SODIUM 10 MG TABLET PO SCH (20:17)
[2025-02-09] MEDS ORDERED: MOMETASONE FUROATE 17GM SPRAY NASAL SCH (20:17)
[2025-02-09] MEDS ORDERED: METHYLPREDNISOLONE SOD SUCC 125 MG VIAL ONE (20:27)
[2025-02-10] VITALS (8 sets, daily range): BP systolic 114–145; BP diastolic 71–89; O2SAT 94–99
[2025-02-10] MEDS ORDERED: METHYLPREDNISOLONE SOD SUCC 125 MG VIAL ONE (05:00)
[2025-02-10 06:23] LABS: BASO % 0.1 % (0.1-1.2); EOS # 0.00 (0.04-0.54); EOS % 0.0 % (0.7-7.0); LYMPH # 1.83 (1.18-3.74); LYMPH % 7.5 % (19.3-53.1); MEAN PLATELET VOLUME 9.70 fl (9.4-12.4); MONO # 0.76 (0.24-0.82); MONO % 3.1 % (4.7-12.5); NEUT # 21.16 (1.56-6.13); NEUT % 87.2 % (34.0-71.1); RED CELL DISTRIBUTION WIDTH 15.5 % (11.6-14.4)
[2025-02-10 06:51] LABS: BUN CREA RATIO 17.0 (7.0-25.0); CREATININE SERUM 0.59 mg/dL (0.55-1.02); GFR 110.22; GLUCOSE FASTING 145.0 mg/dL (65-100); OSMOLALITY SERUM 283.0 MOSM/KG (275-295)
[2025-02-10] MEDS ORDERED: MOMETASONE FUROATE 17GM SPRAY NASAL SCH (09:00)
[2025-02-10] MEDS ORDERED: AZITHROMYCIN 500 MG VIAL IV ONE (09:05)
[2025-02-10] MEDS ORDERED: METHYLPREDNISOLONE SOD SUCC 40 MG VIAL IV SCH (13:00)
[2025-02-11] VITALS (9 sets, daily range): BP systolic 114–141; BP diastolic 67–85; O2SAT 96–100
[2025-02-11] MEDS ORDERED: AZITHROMYCIN 500 MG VIAL IV ONE (07:42)
[2025-02-12] VITALS (8 sets, daily range): BP systolic 123–160; BP diastolic 79–88; O2SAT 97–100
[2025-02-12] MEDS ORDERED: AZITHROMYCIN 500 MG VIAL IV ONE (08:10)
[2025-02-12] MEDS ORDERED: METHYLPREDNISOLONE SOD SUCC 40 MG VIAL IV SCH (21:00)
[2025-02-13] VITALS (9 sets, daily range): BP systolic 124–150; BP diastolic 80–98; O2SAT 90–100
[2025-02-13] MEDS ORDERED: AZITHROMYCIN 500 MG VIAL IV ONE (09:10)
[2025-02-13] MEDS ORDERED: METHYLPREDNISOLONE SOD SUCC 40 MG VIAL IV SCH ×2 (13:00→21:00)
[2025-02-14] VITALS (9 sets, daily range): BP systolic 116–135; BP diastolic 72–88; O2SAT 92–100
[2025-02-14] MEDS ORDERED: AZITHROMYCIN 500 MG VIAL IV ONE (09:06)
[2025-02-15] VITALS (9 sets, daily range): BP systolic 125–151; BP diastolic 82–85; O2SAT 94–100
[2025-02-15] MEDS ORDERED: AZITHROMYCIN 500 MG VIAL IV ONE (08:58)
== END 2025-02-15 22:11 | disposition home or self-care (01) | DRG 202 ==
LOC: ER 15:18 → MEDJ 22:21
PROVIDERS: General Practice; ADMIT Student in an Organized Health Care Education/Training Program; ATTEND Student in an Organized Health Care Education/Training Program
PROC: BB24ZZZ Computerized Tomography (CT Scan) of Bilateral Lungs (ICD-10-PCS; principal; 2025-02-08)
PROC: 3E0F7GC Introduction of Other Therapeutic Substance into Respiratory Tract, Via Natural or Artificial Opening (ICD-10-PCS; 2025-02-09)
PROC: 4A12X4Z Monitoring of Cardiac Electrical Activity, External Approach (ICD-10-PCS; 2025-02-09)
DX: J45.901 Unspecified asthma with (acute) exacerbation (principal); J21.8 Acute bronchiolitis due to other specified organisms; J06.9 Acute upper respiratory infection, unspecified; J20.9 Acute bronchitis, unspecified

== ENCOUNTER 2025-02-16 12:12 | Emergency (ER) | payer OTHER ==
[~2025-02-16] VITALS: Ht 154.9 cm; Wt 93.9 kg
[2025-02-16] MEDS ORDERED: RACEPINEPHRINE HCL 0.5 ML AMPUL IH STA (13:05)
[2025-02-16] MEDS ORDERED: LEVALBUTEROL HCL 0.63 MG/3 ML SOLUTION IH STA (13:06)
[2025-02-16] MEDS ORDERED: METHYLPREDNISOLONE SOD SUCC 125 MG VIAL IV STA (13:08)
[2025-02-16] MEDS ORDERED: RACEPINEPHRINE HCL 0.5 ML AMPUL IH ONE ×2 (13:28→13:58)
[2025-02-16] MEDS ORDERED: METHYLPREDNISOLONE SOD SUCC 125 MG VIAL ONE (13:28)
[2025-02-16] MEDS ORDERED: LEVALBUTEROL HCL 0.63 MG/3 ML SOLUTION IH ONE (13:58)
[2025-02-16 14:15] LABS: BASO % 0.2 % (0.1-1.2); EOS # 0.03 (0.04-0.54); EOS % 0.1 % (0.7-7.0); LYMPH # 4.42 (1.18-3.74); LYMPH % 15.0 % (19.3-53.1); MEAN PLATELET VOLUME 9.40 fl (9.4-12.4); MONO # 1.97 (0.24-0.82); MONO % 6.7 % (4.7-12.5); NEUT # 22.62 (1.56-6.13); NEUT % 76.8 % (34.0-71.1); RED CELL DISTRIBUTION WIDTH 15.9 % (11.6-14.4)
[2025-02-16 14:47] LABS: ALT/SGPT 35.0 U/L (12-78); AST/SGOT 9.0 U/L (15-37); BILIRUBIN TOTAL 0.32 mg/dL (0.3-1.2); BUN CREA RATIO 22.0 (7.0-25.0); CREATININE SERUM 0.78 mg/dL (0.55-1.02); GFR 79.87; GLOBULINA 3.3 G/DL (2.4-3.5); GLUCOSE FASTING 127.0 mg/dL (65-100); OSMOLALITY SERUM 286.0 MOSM/KG (275-295)
[2025-02-16 14:59] LABS: URINE APPEARANCE Clear; URINE BILIRRUBIN Negative (NEGATIVE); URINE BLOOD Negative; URINE COLOR Yellow; URINE GLUCOSE Negative (NEGATIVE); URINE KETONE Trace (NEGATIVE); URINE LEUKOCYTE Negative; URINE NITRATE Negative; URINE PROTEIN Negative (NEGATIVE); URINE UROBILINOGEN 1.0 E.U./dl
[2025-02-16 15:03] LABS: URINE BACTERIA 160.7 uL (0.0-1933); URINE EPITHELIAL CELLS 7.3 uL (0.0-38.8); URINE RBC 11.7 uL (0.0-20.8); URINE WBC 4.7 uL (0.0-23.2)
[2025-02-16 15:18] LABS: COVID-19 AG NEGATIVE (NEGATIVE)
[2025-02-16 15:38] LABS: URINE CAST 0.14 uL (0.0-1.40)
[2025-02-17] MEDS ORDERED: PEPCID AC20 MG PO (21:43)
[2025-02-17] MEDS ORDERED: BENZONATATE200 M1 PO (21:43)
[2025-02-17] MEDS ORDERED: SINGULAIR10 MG PO (21:43)
[2025-02-17] MEDS ORDERED: PROAIR RESPICL90 MCG IH (21:43)
[2025-02-17] MEDS ORDERED: LEVALBUTER0.63 MG/3 IH (21:43)
== END 2025-02-16 19:18 | disposition home or self-care (01) ==
LOC: ER 12:13
PROVIDERS: Physician Assistant Medical
DX: J45.901 Unspecified asthma with (acute) exacerbation (principal); J21.9 Acute bronchiolitis, unspecified; J05.0 Acute obstructive laryngitis [croup]; Z20.822 Contact with and (suspected) exposure to COVID-19; Z88.8 Allergy status to other drugs, medicaments and biological substances; Z91.040 Latex allergy status; Z91.018 Allergy to other foods

== ENCOUNTER 2025-02-17 15:29 | Emergency (ER) | payer OTHER ==
[~2025-02-17] VITALS: Ht 154.9 cm; Wt 93.9 kg
[2025-02-17] MEDS ORDERED: METHYLPREDNISOLONE SOD SUCC 40 MG VIAL IV ONE (17:00)
[2025-02-17] MEDS ORDERED: LEVALBUTEROL HCL 1.25 MG/3 ML SOLUTION IH SCH (17:00)
[2025-02-17] MEDS ORDERED: BENZONATATE 200 MG CAPSULE PO ONE (17:00)
[2025-02-17] MEDS ORDERED: IPRATROPIUM BROMIDE 0.5 MG/2.5 ML AMPUL.NEB IH SCH (17:00)
[2025-02-17] MEDS ORDERED: MAGNESIUM SULFATE IN WATER 2 GM/50 ML PIGGYBAG IV ONE (17:00)
[2025-02-17] MEDS ORDERED: MAGNESIUM SULFATE 50% 1,000 MG/2 ML VIAL ONE ×2 (18:22→18:27)
[2025-02-17] MEDS ORDERED: METHYLPREDNISOLONE SOD SUCC 40 MG VIAL ONE (18:23)
[2025-02-17] MEDS ORDERED: IPRATROPIUM BROMIDE 0.5 MG/2.5 ML AMPUL.NEB IH ONE (19:00)
[2025-02-17] MEDS ORDERED: LEVALBUTEROL HCL 1.25 MG/3 ML SOLUTION IH ONE (19:00)
[2025-02-17 19:15] LABS: COVID-19 AG NEGATIVE (NEGATIVE)
[2025-02-17 19:27] LABS: BASO % 0.2 % (0.1-1.2); EOS # 0.01 (0.04-0.54); EOS % 0.0 % (0.7-7.0); LYMPH # 2.25 (1.18-3.74); LYMPH % 7.1 % (19.3-53.1); MEAN PLATELET VOLUME 9.40 fl (9.4-12.4); MONO # 2.06 (0.24-0.82); MONO % 6.5 % (4.7-12.5); NEUT # 26.69 (1.56-6.13); NEUT % 84.9 % (34.0-71.1); RED CELL DISTRIBUTION WIDTH 15.8 % (11.6-14.4)
[2025-02-17] MEDS ORDERED: PROAIR RESPICL90 MCG IH (21:43)
[2025-02-17] MEDS ORDERED: BENZONATATE200 M1 PO (21:43)
[2025-02-17] MEDS ORDERED: PEPCID AC20 MG PO (21:43)
[2025-02-17] MEDS ORDERED: LEVALBUTER0.63 MG/3 IH (21:43)
[2025-02-17] MEDS ORDERED: SINGULAIR10 MG PO (21:43)
== END 2025-02-17 21:53 | disposition home or self-care (01) ==
LOC: ER 15:29
PROVIDERS: General Practice
DX: R06.02 Shortness of breath (principal); R05.9 Cough, unspecified; E03.8 Other specified hypothyroidism; Z20.822 Contact with and (suspected) exposure to COVID-19; Z91.018 Allergy to other foods; Z91.040 Latex allergy status; Z91.041 Radiographic dye allergy status

== ENCOUNTER 2025-03-21 07:51 | Outpatient (CLI) | payer OTHER ==
[~2025-03-21 07:51] MED LIST changes: +LEVALBUTER0.63 MG/3 IH; +PEPCID AC20 MG PO; +PROAIR RESPICL90 MCG IH; +SINGULAIR10 MG PO
[2025-03-21 09:36] LABS: BASO % 0.3 % (0.1-1.2); EOS # 0.10 (0.04-0.54); EOS % 0.8 % (0.7-7.0); LYMPH # 1.93 (1.18-3.74); LYMPH % 15.1 % (19.3-53.1); MEAN PLATELET VOLUME 9.50 fl (9.4-12.4); MONO # 0.79 (0.24-0.82); MONO % 6.2 % (4.7-12.5); NEUT # 9.64 (1.56-6.13); NEUT % 75.4 % (34.0-71.1); RED CELL DISTRIBUTION WIDTH 16.1 % (11.6-14.4)
[2025-03-21 09:48] LABS: URINE APPEARANCE Clear; URINE BILIRRUBIN Negative (NEGATIVE); URINE BLOOD Negative; URINE COLOR Yellow; URINE GLUCOSE Negative (NEGATIVE); URINE KETONE Trace (NEGATIVE); URINE LEUKOCYTE Trace; URINE NITRATE Negative; URINE PROTEIN Negative (NEGATIVE); URINE UROBILINOGEN 0.2 E.U./dl
[2025-03-21 09:53] LABS: URINE BACTERIA 319.1 uL (0.0-1933); URINE EPITHELIAL CELLS 14.4 uL (0.0-38.8); URINE RBC 16.2 uL (0.0-20.8); URINE WBC 2.4 uL (0.0-23.2)
[2025-03-21 10:01] LABS: URINE CAST 0.14 uL (0.0-1.40)
[2025-03-21 11:03] LABS: ALT/SGPT 23.0 U/L (12-78); AST/SGOT 14.0 U/L (15-37); BILIRUBIN TOTAL 0.39 mg/dL (0.3-1.2); BUN CREA RATIO 22.0 (7.0-25.0); CREATININE SERUM 0.49 mg/dL (0.55-1.02); GFR 136.57; GLOBULINA 3.1 G/DL (2.4-3.5); GLUCOSE FASTING 98.0 mg/dL (65-100); OSMOLALITY SERUM 282.0 MOSM/KG (275-295)
== END 2025-03-21 07:55 | disposition home or self-care (01) ==
LOC: LAB 07:51
DX: R82.90 Unspecified abnormal findings in urine (principal); R79.89 Other specified abnormal findings of blood chemistry

== ENCOUNTER → 2025-04-16 | Emergency (ER) | payer OTHER ==
[~2025-04-16] VITALS: Ht 154.9 cm; Wt 89.4 kg
[~2025-04-16] MED LIST changes: +CEFTRIAXONE SODIUM 1,000 MG VIAL ONE; +GUAIFENESIN/DEXTROMETHORPHAN 100MG/10ML BLIST.PACK PO ONE; +IPRATROPIU0.2 MG/1 M IH; +IPRATROPIUM BROMIDE 0.5 MG/2.5 ML AMPUL.NEB IH ONE; +LEVALBUTEROL HCL 1.25 MG/3 ML SOLUTION IH ONE; +LIDOCAINE HCL 1% 10ML VIAL ONE; +METHYLPREDNISOLONE SOD SUCC 125 MG VIAL IV ONE; +TUSSIN DM LIQU118 ML PO; +ZITHROMAX500 MG PO; +levoFLOXacin IN DEXTROSE 5 % 5 MG/ML PIGGYBAG IV ONE
[2025-04-16 15:42] LABS: BASO % 0.5 % (0.1-1.2); EOS # 0.25 (0.04-0.54); EOS % 1.9 % (0.7-7.0); LYMPH # 2.42 (1.18-3.74); LYMPH % 18.2 % (19.3-53.1); MEAN PLATELET VOLUME 9.60 fl (9.4-12.4); MONO # 0.95 (0.24-0.82); MONO % 7.1 % (4.7-12.5); NEUT # 9.59 (1.56-6.13); NEUT % 72.0 % (34.0-71.1); RED CELL DISTRIBUTION WIDTH 15.5 % (11.6-14.4)
[2025-04-16 15:56] LABS: COVID-19 AG NEGATIVE (NEGATIVE)
== END ==
LOC: ER 11:49
PROVIDERS: General Practice
DX: J06.9 Acute upper respiratory infection, unspecified (principal); J45.901 Unspecified asthma with (acute) exacerbation; R05.8 Other specified cough; R07.89 Other chest pain; R51.9 Headache, unspecified; E03.8 Other specified hypothyroidism; Z91.018 Allergy to other foods; Z91.040 Latex allergy status; Z91.041 Radiographic dye allergy status; Z20.822 Contact with and (suspected) exposure to COVID-19